=== PATIENT | female | born 1955 | race Caucasian/White ===

== ENCOUNTER → 2017-06-14 | Outpatient (CLI) | payer OTHER | LOC: FIMAGING 13:15 | DX: M71.22 Synovial cyst of popliteal space [Baker], left knee (principal) ==

== ENCOUNTER 2017-06-25 10:17 | Day surgery (SDC) | payer OTHER ==
[2017-06-25] MEDS ORDERED: LR 1,000 ML IV ONE (11:12)
[2017-06-25] MEDS ORDERED: LIDOCAINE 1% 2 ML INJ ID PRN (11:12)
[2017-06-25] MEDS ORDERED: PROPOFOL/EMULSION 500 MG/50 ML BOTTLE IV ONE (12:26)
[2017-06-25] MEDS ORDERED: MIDAZOLAM 2 MG/2 ML VIAL ONE (12:26)
[2017-06-25] MEDS ORDERED: ONDANSETRON 4 MG/2 ML VIAL IVP PRN (12:52)
[2017-06-25] MEDS ORDERED: LR 500 ML IV PRN (12:52)
[2017-06-25] MEDS ORDERED: NALOXONE HCL 0.4 MG/ML INJ IVP PRN (12:52)
[2017-06-25] MEDS ORDERED: PROMETHAZINE HCL 25 MG/ML INJ IVP PRN (12:52)
--- NOTE | 2017-06-25 12:52 | PDANEPAE ---
ANE Past Medical History - Cardiovascular History Hx Hypertension: No Hx Arrhythmias: No Hx Chest Pain: No Hx Coronary Artery / Peripheral Vascular Disease: No Hx CHF / Valvular Disease: No Hx Palpitations: No Cardiovascular History Comment: 01/2014 CHEST DISCOMFORT IN PAST HAD ECHO WHICH WAS NORMAL. "EXTRA HEART BEAT" OCCAS - Pulmonary History Hx COPD: No Hx Asthma/Reactive Airway Disease: No Hx Recent Upper Respiratory Infection: No Hx Oxygen in Use at Home: No Hx Sleep Apnea: No Sleep Apnea Screening Result - Last Documented: Positive - Neurologic History Hx Cerebrovascular Accident: No Hx Seizures: No Hx Dementia: No - Endocrine History Hx Diabetes: No - Renal History Hx Renal Disorders: No - Liver History Hx Hepatic Disorders: Yes Hepatic History Comment: CHOLECYSTECTOMY - Neurological & Psychiatric Hx Hx Neurological and Psychiatric Disorders: No - Cancer History Hx Cancer: No - Congenital Disorder History Hx Congenital Disorders: No - GI History Hx Gastrointestinal Disorders: No - Other Health History Other Health History: DDD. LOWER BACK, NECK AND LT HIP PAIN. EPIDURAL INJECTION. ANEMIA IN PAST - Chronic Pain History Chronic Pain: Yes (LT HIP LOWER BACK) - Surgical History Prior Surgeries: COLONOSCOPY WITH POLYP REMVL. REMVL COCCYX. ABHILASH. TONSILLECTOMY ANE Review of Systems - Exercise capacity METS (RN): 4 METS ANE Patient History - Allergies Allergies/Adverse Reactions: No Known Allergies Allergy (Verified 06/20/16 09:04) - Home Medications Home Medications: Cymbalta 60 MG (RX) 01/30/16 [Last Taken 06/24/17 13:00] Zubsolv 2.9-0.71 mg Tablet Sl 01/30/16 [Last Taken 06/24/17 13:00] Advil 06/20/17 [Last Taken 06/21/17 12:00] Gabapentin 06/20/17 [Last Taken 06/24/17 13:00] - NPO status NPO Since - Liquids (Date): 06/24/17 NPO Since - Liquids (Time): 23:00 NPO Since - Solids (Date): 06/24/17 NPO Since - Solids (Time): 08:30 - Smoking Hx Smoking Status: Former smoker ANE Labs/Vital Signs - Vital Signs Blood Pressure: 122/86 Heart Rate: 86 Respiratory Rate: 16 O2 Sat (%): 92 Height: 167.64 cm Weight: 83.007 kg ANE Physical Exam - Airway Neck exam: decreased ROM Mallampati Score: Class 3 Mouth exam: normal dental/mouth exam - Pulmonary Pulmonary: no respiratory distress, no rales or rhonchi, clear to auscultation, reduced air movement - Cardiovascular Cardiovascular: regular rate and rhythym - ASA Status ASA Status: III ANE Anesthesia Plan Anesthesia Plan: MAC
[2017-06-25] MEDS ORDERED: INDOMETHACIN 50 MG SUPP PR PRN (13:04)
--- NOTE | 2017-06-25 13:04 | PDGENHP ---
History & Physical Chief Complaint: colon polyps History of Present Illness: 62 year old female presents for surveillance of a 1.5cm polyp removed in piecemeal fashion Pertinent Past, Social, Family History: FaMHx:+ CRC in grandparents. PMHx: chronic pain Relevant Physical Exam: HEENT: Anicteric. CV: RRR + s1s2. Lungs: CTAB Cardiorespiratory Assessment: ASA 2
[2017-06-25] MEDS ORDERED: NS 500 ML IV SCH (13:15)
[2017-06-25 13:25] VITALS: TEMP 97.2
--- NOTE | 2017-06-25 13:41 | POSTANESTH ---
Post Anesthetic Evaluation Cardiovascular Status: Normal, Stable Respiratory Status: Normal, Stable, Similar to Pre-op Cond. Level of Consciousness/Mental Status: Mildly Sleepy, Arousable Pain Control: Adequate, Prn Tx Ordered Nausea/Vomiting Control: Adequate, Prn Tx Ordered Complications Possibly Related to Anesthesia: None Noted
--- NOTE | 2017-06-25 13:47 | GPN ---
[f rep st] PROCEDURE NOTE DATE OF PROCEDURE: 06/25/2017 PROCEDURE PERFORMED: Colonoscopy. INDICATIONS: Sunita is a 62-year-old female with a history of a complex proximal transverse colon polyp who presents for surveillance colonoscopy. CONSENT: Risks, benefits, and alternatives of the procedure were discussed in great detail with the patient. Risks of infection, bleeding, perforation, and sedation were discussed. All questions were answered. Informed consent was obtained. MEDICATIONS: Propofol. Please see Anesthesiology record for details. ESTIMATED BLOOD LOSS: Insignificant. COLONOSCOPIC EVALUATION: A rectal exam was performed and no palpable mass was felt. The scope was inserted into the rectum, advanced to cecum, where the ileocecal valve and appendiceal orifice were seen. The quality of prep was just fair with thick liquid as well as solid stool seen scattered throughout the colon. Aggressive flushing and suctioning was utilized with decent visualization of the colon. No colonic masses or polyps were seen. IMPRESSION: 1. No masses or polyps visualized. RECOMMENDATIONS: 1. Repeat colonoscopy in 2 years due to a history of complex adenoma. 2. Continue previous medications. 3. Regular diet. /[id number]/MODL MTDD
[2017-06-25 14:22] VITALS: BP 123/79; PULSE 76; RESP 13; O2SAT 97
== END 2017-06-25 14:45 | disposition home or self-care (01) ==
LOC: FSGY 10:17
PROVIDERS: ATTEND Internal Medicine Gastroenterology
PROC: 0DJD8ZZ Inspection of Lower Intestinal Tract, Via Natural or Artificial Opening Endoscopic (ICD-10-PCS; principal; 2017-06-25 11:45)
DX: Z12.11 Encounter for screening for malignant neoplasm of colon (principal); Z86.010 Personal history of colon polyps; F32.9 Major depressive disorder, single episode, unspecified
CPT/HCPCS: J2250; J2704

== ENCOUNTER 2017-08-13 16:54 | Emergency (ER) | payer OTHER ==
[2017-08-13 17:01] VITALS: TEMP 98.6
--- NOTE | 2017-08-13 17:16 | CPEKG ---
Heart Rate: 122 RR Interval: 492 P-R Interval: 304 QRSD Interval: 80 QT Interval: 320 QTC Interval: 456 P [place]: 0 QRS [place]: 25 T Wave [place]: 36 EKG Severity - ABNORMAL ECG - EKG Impression: regular tachycardia, possibly sinus Electronically Signed By: Michelle Maxwell 13-Aug-2017 21:06:03
--- NOTE | 2017-08-13 17:21 | EDPHY ---
H & P Time Seen by Provider: 08/13/17 17:06 HPI/ROS: CHIEF COMPLAINT: Fatigue, Nausea, Headaches HISTORY OF PRESENT ILLNESS: The patient is a 62-year-old female with history of chronic pain, who presents with opiod withdrawal symptoms. 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 She has been weening off of the Suboxone for 3 months. She states she has felt fatigued, with headaches and nausea since weening off of the Suboxone. She has tried Gabapentin at night and Tramadol at night, but her symptoms do not improve. The patient has been wearing a Clonidine patch for 3 weeks. She took off the patch this afternoon to see if it would improve her symptoms, but instead she developed palpitations. The patient is taking 1/4 to 1/2 tablet of Suboxone twice daily. When she feels worse she takes more, but does not seem to improve. REVIEW OF SYSTEMS: A comprehensive 10 point review of systems is otherwise negative aside from elements mentioned in the history of present illness. Past Medical/Surgical History: Chronic pain, Kidney stones, PSH: Cholecystectomy Social History: . Smoking Status: Heavy smoker Physical Exam: General Appearance: Alert, pleasant Eyes: Pupils equal and round, no conjunctival pallor or injection ENT, Mouth: Mucous membranes moist Neck: Normal inspection Respiratory: Lungs are clear to auscultation Cardiovascular: Regular tachycardia Gastrointestinal: Abdomen is soft and non-tender Neurological: A&O, nonfocal, normal gait Skin: Warm and dry, no rash Extremities: Nontender, no pedal edema Psychiatric: Anxious Constitutional: Initial Vital Signs Temperature (C) 37.0 C 08/13/17 16:59 Heart Rate 128 H 08/13/17 16:59 Respiratory Rate 28 H 08/13/17 16:59 Blood Pressure 153/113 H 08/13/17 16:59 O2 Sat (%) 98 08/13/17 16:59 O2 Delivery Mode Room Air Allergies/Adverse Reactions: No Known Allergies Allergy (Verified 06/20/16 09:04) Home Medications: Medication Instructions Recorded Cymbalta 60 MG (RX) 01/30/16 Gabapentin 06/20/17 traMADol 08/13/17 Medical Decision Making - Diagnostics EKG Interpretation: EKG interpreted by me reveals regular tachycardia, rate 122, ST segment depression in V2 and V3. Repeat EKG interpreted by me reveals normal sinus rhythm, rate 75, normal axis, normal intervals, ST and T segments normal. Interpretation: normal EKG ED Course/Re-evaluation: Patient with history of chronic pain and opioid addiction presents with tachycardia, likely secondary to opiate withdrawal and sunnden removal of clonidine patch. The patient was placed on a nurse monitoring. Heart rate 120s. EKG reveals a regular tachycardia with ST segment depression in V2 and V3. She has no clinical signs of acute coronary syndrome and I suspect that this is a rate related abnormality. It is unclear if this is a sinus tachycardia or not, I do not see P waves. She is requesting IV fluids and CBC because she feels dehydrated. Dehydration could certainly contribute to the tachycardia. I ordered CBC and BMP and 2L normal saline. 1840: I re-evaluated the patient. The patient is feeling better, her HR is 90 after IV fluids 1 L. Repeat EKG reveals normal sinus rhythm, rate 75. The ST segment changes have resolved. She will continue receiving IV fluids. Plan for 0.5mg Ativan. Continues to feel much better. Wants to go home. HR 80's. Will discontinue clonidine patch. Will follow up with pain medicine specialist for further care. Differential Diagnosis: Differential diagnosis includes does not limited to opiate withdrawal, dehydration, acute coronary syndrome, SVT, atrial fibrillation. - Data Points Laboratory Results: Laboratory Results 08/13/17 17:50 08/13/17 17:50 Medications Given: Discontinued Medications Sodium Chloride (Ns) 1,000 mls @ 0 mls/hr IV EDNOW ONE; Wide Open PRN Reason: Protocol Stop: 08/13/17 17:44 Last Admin: 08/13/17 17:55 Dose: 1,000 mls Sodium Chloride (Ns) 1,000 mls @ 0 mls/hr IV ONCE ONE; Wide Open PRN Reason: Protocol Stop: 08/13/17 17:44 Last Admin: 08/13/17 17:56 Dose: 1,000 mls Lorazepam (Ativan Injection) 0.5 mg IVP EDNOW ONE Stop: 08/13/17 18:49 Last Admin: 08/13/17 18:54 Dose: 0.5 mg Departure - Departure Disposition: Home, Routine, Self-Care Clinical Impression: Opiate withdrawal, Tachycardia Condition: Good Instructions: Dehydration (ED), Opioid Withdrawal (ED) Additional Instructions: Drink plenty of fluids. Follow up with your apprentice painter neckties. Referrals: Magnolia Tafoya MD [Medical Doctor] - As per Instructions Report Scribed for: Michelle Maxwell Report Scribed by: Melina Henriquez Date of Report: 08/13/17 Time of Report: 17:18 Physician Review and Approval Statement: 08/13/17 17:18 Portions of this note were transcribed by a medical case worker. I personally performed the history, physical exam, and medical decision-making; and confirmed the accuracy of the information in the transcribed note.
[2017-08-13] MEDS: NS 1,000 ML IV ONE ×2 (17:55→17:56)
[2017-08-13 18:09] LABS: % IMMATURE GRANULYOCYTES 0.1 % (0.0-1.1); ABSOLUTE IMMATURE GRANULOCYTES 0.01 10^3/uL (0.00-0.10); ADD DIFF? NO; ADD MORPH? NO; ADD SCAN? NO; ATYPICAL LYMPHOCYTE FLAG 0 (0-99); FRAGMENT RBC FLAG 0 (0-99); HEMATOCRIT 47.6 % (38.0-47.0); HEMOGLOBIN 16.8 g/dL (12.6-16.3); LEFT SHIFT FLG 0 (0-99); LIPEMIA HEMOLYSIS FLAG 90 (0-99); MEAN CELL HEMOGLOBIN 30.3 pg (27.9-34.1); MEAN CELL HEMOGLOBIN CONCENTR. 35.3 g/dL (32.4-36.7); MEAN CELL VOLUME 85.8 fL (81.5-99.8); MEAN PLATELET VOLUME 9.9 fL (8.7-11.7); PLATELET CLUMPS FLAG 0 (0-99); PLATELET COUNT 252 10^3/uL (150-400); RED BLOOD CELL COUNT 5.55 10^6/uL (4.18-5.33)
[2017-08-13] MEDS: LORazepam 2 MG/ML INJ IVP ONE (18:54)
--- NOTE | 2017-08-13 18:58 | CPEKG ---
Heart Rate: 75 RR Interval: 800 P-R Interval: 192 QRSD Interval: 80 QT Interval: 392 QTC Interval: 438 P [place]: 53 QRS [place]: 43 T Wave [place]: 28 EKG Severity - NORMAL ECG - EKG Impression: SINUS RHYTHM Electronically Signed By: Michelle Maxwell 13-Aug-2017 21:04:51
[2017-08-13 19:01] LABS: ANION GAP 12 mEq/L (8-16); CALCIUM 10.3 mg/dL (8.5-10.4); CARBON DIOXIDE 20 mEq/l (22-31); CHLORIDE 109 mEq/L (97-110); CREATININE 0.8 mg/dL (0.6-1.0); GLOMERULAR FILTRATION RATE > 60; GLUCOSE 88 mg/dL (70-100); POTASSIUM 4.1 mEq/L (3.5-5.2); SODIUM 141 mEq/L (134-144)
[2017-08-13 20:00] VITALS: BP 116/75; PULSE 89; RESP 16; O2SAT 97
== END 2017-08-13 19:59 | disposition home or self-care (01) ==
DX: F11.23 Opioid dependence with withdrawal (principal); R00.0 Tachycardia, unspecified; F17.200 Nicotine dependence, unspecified, uncomplicated; E86.9 Volume depletion, unspecified
CPT/HCPCS: 96374; J2060

== ENCOUNTER 2017-09-19 19:13 | Emergency (ER) | payer OTHER ==
[2017-09-19 19:19] VITALS: BP 120/97; PULSE 126; RESP 18; TEMP 97.9; O2SAT 97
[2017-09-19] MEDS ORDERED: LORazepam 1 MG TAB PO ONE (19:32)
--- NOTE | 2017-09-19 19:39 | EDPHY ---
H & P Time Seen by Provider: 09/19/17 19:21 HPI/ROS: HPI Trying to get off pain medications. 62-year-old female by private vehicle with her . She has a history of chronic opiate dependence. She has a history of chronic pain. She reports that she was in [place] last week from Sunday through . She reports she was there because she has been on Suboxone as well as methadone and was trying to get off of these medications. Did not have any significant withdrawal while there but she reports however that since yesterday she has had withdrawal symptoms including high anxiety, intermittent shaking and insomnia. She is asking for medication to help her with the symptoms. ROS: Constitutional: No fever, no chills. No weakness. As above Eyes: No discharge. No changes in vision. ENT: No sore throat. No nasal congestion or rhinorrhea. Respiratory: No cough. No shortness of breath. Cardiac: No chest pain, no palpitations. Gastrointestinal: No abdominal pain, no vomiting, no diarrhea. Genitourinary: No hematuria. No dysuria or increased frequency with urination. Musculoskeletal: No back pain. No neck pain. No myalgias or arthralgias. Skin: No rashes. Neurological: No headache. No focal weakness or altered sensation. Past medical history: Back surgery, cholecystectomy, chronic pain, kidney stones, as above. Other medications include Cymbalta and gabapentin. Social history: Nonsmoker. Here with her . Denies alcohol. Physical Exam: General Appearance: Alert, anxious. This patient is responding to questions appropriately and in full sentences. This patient appears well-hydrated and well-nourished. Eyes: Pupils equal and round no pallor or injection. No lid edema, erythema or injection. Respiratory: There are no retractions, lungs are clear to auscultation with good air movement bilaterally. Cardiovascular: Regular rate and rhythm. No murmur appreciated. Gastrointestinal: Abdomen is soft and nontender, no masses, bowel sounds normal. No focal tenderness at McBurney's point. No Davis sign. Neurological: Motor sensory function is grossly intact. Cranial nerves are normal. Gait is normal. Skin: Warm and dry, no rashes. Musculoskeletal: Neck is supple and nontender. Extremities are symmetrical. All joints range without pain or impingement. Psychiatric: No agitation. No depression. Database: EKG: Imaging: Procedures: Emergency department course: I discussed treatment options with the patient. I explained that we did not offer detox program here at our hospital. I urged her to call [facility] for evaluation and I of their treatment programs. She stated that she would do this. She was given 1 mg of oral Ativan in the emergency department. I discussed withdrawal symptoms with both her and her . I will write her a limited prescription for Ativan. She is to call her pain management physician tomorrow for follow-up and further management. She does feel comfortable going home. Return to emergency department precautions reviewed. All of her questions were answered. She was discharged in good condition with her who is driving. Differential Diagnosis: The differential diagnosis on this patient includes but is not limited to opiate withdrawal. This represents a partial list of diagnoses considered. These considerations are based on history, physical exam, past history, reassessment and diagnostic testing. Smoking Status: Former smoker Constitutional: Initial Vital Signs Temperature (C) 36.6 C 09/19/17 19:14 Heart Rate 126 H 09/19/17 19:14 Respiratory Rate 18 09/19/17 19:14 Blood Pressure 120/97 H 09/19/17 19:14 O2 Sat (%) 97 09/19/17 19:14 O2 Delivery Mode Room Air Allergies/Adverse Reactions: No Known Allergies Allergy (Verified 06/20/16 09:04) Home Medications: Medication Instructions Recorded Cymbalta 60 MG (RX) 01/30/16 Gabapentin 06/20/17 LORazepam [Ativan] 1 mg PO Q6-8PRN PRN #10 tablet 09/19/17 Departure - Departure Disposition: Home, Routine, Self-Care Clinical Impression: Opiate withdrawal Condition: Good Instructions: Opioid Withdrawal (ED) Additional Instructions: Read and follow provided instructions. Follow-up with your pain management physician in 1-2 days for re-evaluation and further management. You can also call [facility] and asked them about readmission to a treatment program. Take medication as prescribed only for anxiety. Return to the emergency department for for fever, vomiting and inability to keep fluids down, seizure or other serious concerns. Referrals: LISA WILDE [Primary Care Provider] - As per Instructions [facility] [Clinic] - As per Instructions Prescriptions: LORazepam [Ativan] 1 mg PO Q6-8PRN PRN #10 tablet PRN Reason: Anxiety
== END 2017-09-19 19:56 | disposition home or self-care (01) ==
DX: F11.23 Opioid dependence with withdrawal (principal); Z87.891 Personal history of nicotine dependence